=== PATIENT | female | born 1965 | race Caucasian/White ===

== ENCOUNTER 2017-03-15 21:48 | Emergency (ER) | payer BC ==
[2017-03-15] MEDS ORDERED: Sodium Chloride 0.9% 10 ML Syringe FLUSH PRN (22:00)
[2017-03-15] MEDS ORDERED: Ondansetron 4 MG/2 ML SDV IVPUSH ONE (22:01)
[2017-03-15] MEDS ORDERED: Sodium Chloride 0.9% 1,000 ML IV ONE (22:01)
[2017-03-15] MEDS ORDERED: Ketorolac 30 MG/ML SDV IVPUSH ONE (22:03)
[2017-03-15] MEDS ORDERED: Prochlorperazine 10 MG/2 ML SDV IV ONE (22:04)
[2017-03-15 23:17] LABS: CHLORIDE,CL 103 mmol/L (98-107); SODIUM,NA 138 mmol/L (136-145)
[2017-03-15 23:39] VITALS: BP 153/100
--- NOTE | 2017-03-16 19:45 | ER ---
Date of Service: 03/15/2017 SUBJECTIVE: Bailey presents to the emergency room with complaints of cephalgia. She states that the headache started approximately 24 hours prior to coming to the emergency room. She states that she has not been experiencing any numbness or tingling in her extremities or face. She states that the headache is located primarily in the left frontal area. She states that this is similar to migraines she has experienced in the past, but worse. She denies any recent head trauma. She states that her migraines have been under better control as she has gotten older and states that she has not had a severe migraine like this for approximately a year. PAST MEDICAL HISTORY: 1. Migraine headaches. 2. Simvastatin. 3. Benazepril. 4. Gabapentin. 5. Norethindrone. 6. Cyclobenzaprine. 7. Ranitidine. 8. Metoprolol tartrate. 9. Tramadol. ALLERGIES: Morphine. REVIEW OF SYSTEMS: General: Denies any numbness or tingling in her face or extremities. No difficulties with speech or ambulation. Does complain of global weakness. She denies any chest pain or shortness of breath. PHYSICAL EXAMINATION: General: This is a 51-year-old female patient, who is in no acute distress. Vital Signs: Initially, blood pressure was 175/87, was rechecked and was found to be 153/90, heart rate was 109, temperature is 36.4, respiratory rate is 24, O2 saturations 98% on room air. Skin: Warm, pink, and dry. HEENT. Head is normocephalic, atraumatic. Eyes, PERRLA. Extraocular movements are intact. Ears, TMs are clear. Mouth, oral mucosa is dry. No erythema or exudate noted in the hypopharynx. Neck: Supple. No masses. There is no lymphadenopathy. Lungs: Clear to auscultation. Heart: Regular rate and rhythm. Abdomen: Soft and diffusely tender throughout. There is no masses or hepatosplenomegaly noted. Extremities: Without edema. Neurologic: She is alert and oriented, answers all questions appropriately. Her speech is fluent. Her gait is within normal limits. LABORATORY DATA: WBCs 16.4, hemoglobin is 13.4, platelets are 216. PT is 10.6, INR is 0.9. Chemistry; sodium is 138, potassium is 3.7, chloride is 103, bicarb is 20, BUN is 9, creatinine 0.7, creatinine clearance is 90.01. GFR is greater than 60. Glucose is 123, calcium is 8.8, corrected calcium is 9.44, total bilirubin is 0.5. AST is 21, ALT is 22, alkaline phosphatase is 142, total protein is 7.4, albumin is 3.2. CT scan of the patient's brain without contrast was obtained and there was no evidence of any acute intracranial pathology. EMERGENCY ROOM COURSE: IV access was established. She was given a liter of normal saline IV as she was dehydrated from vomiting. She was given Compazine 10 mg IV and Toradol 30 mg IV. She did report rapid improvement in her headache and stated that the discomfort went from a greater than 10 to near 0 at time of discharge. She remained stable under my care in the emergency room. ASSESSMENT: Migraine headache. PLAN: The patient will be discharged. I did give her a prescription for some Compazine to take 10 mg every 4 to 6 hours as needed for headache. She can also take ibuprofen and Benadryl if she is continuing to have a headache. All questions were answered. MWK: 03/16/2017 11:53:17 MODL: 03/16/2017 19:37:17 /[id number]
== END 2017-03-15 23:55 | disposition home or self-care (01) ==
LOC: VM.ED 21:48
DX: G43.909 Migraine, unspecified, not intractable, without status migrainosus (principal); Z88.5 Allergy status to narcotic agent
CPT/HCPCS: 36415; 70450; 80053; 85025; 85610; 96361; 96374; 96375; 99284; J0780; J1885; J7030